=== PATIENT | female | born 1930 | race Caucasian/White ===

== ENCOUNTER 2017-02-02 17:24 | Emergency (ER) | payer OTHER ==
[~2017-02-02] VITALS: Ht 152.4 cm; Wt 76.0 kg
[~2017-02-02 17:24] MED LIST: GABA100C4 PO; HYDR-3533 PO; LISI40TA PO; LOVA10TA PO; METO25TA6 PO; MOTR200T4 PO; ULTR50TA5 PO; VITA400C97 PO; VITATAB11 PO; VITD400 PO; [UNRECOGNIZED DRUG - CODE] PO
[2017-02-02 17:28] VITALS: BP 156/70; PULSE 68; RESP 17; TEMP 98.3; O2SAT 96
[2017-02-02] MEDS ORDERED: AMLOPOW (17:49)
[2017-02-02] MEDS ORDERED: PROP10TA6 PO (17:49)
[2017-02-02] MEDS ORDERED: LABE100T2 PO (17:49)
[2017-02-02] MEDS ORDERED: HYDR12.56 PO (17:49)
[2017-02-02] MEDS ORDERED: ULTR50TA5 PO (17:54)
--- NOTE | 2017-02-02 17:54 | PD ---
HPI Chief Complaint: Back/ Neck Pain or Injury Time Seen by Provider: 17:40 Travel History International Travel<30 days: No Contact w/Intl Traveler<30days: No Traveled to known affect area: No History of Present Illness HPI 86-year-old female with history of chronic low back pain and sciatica presents emergency department for evaluation of increased pain of the last 1 day. She denies trauma or fall. Patient reports the pain is similar to her sciatica. It is unrelieved by Naprosyn. Her physical exam is reassuring. She denies incontinence, fever, chills, numbness/tingling/weakness of the extremities, saddle anesthesia. PFSH Past Medical History Hx Anticoagulant Therapy: No Arthritis: Yes Asthma: Yes Autoimmune Disease: No Blood Disorders: No Heart Rhythm Problems: Yes Cancer: Yes (COLON, RESECTION IN 1965) Cardiovascular Problems: Yes (htn on meds) High Cholesterol: Yes Chest Pain: Yes COPD: Yes Diminished Hearing: No Endocrine: No Genitourinary: No Hiatal Hernia: Yes Hypertension: Yes Psychiatric: No Reproductive: No Respiratory: Yes (copd) Immunizations Current: Yes Menopausal: Yes Past Surgical History Abdominal Surgery: Yes (stomach bypass, COLON RESECTION.) Appendectomy: Yes (at age 5) Ear Surgery: No Eye Surgery: Yes (CATARACTS REMOVAL) Gynecologic Surgery: Yes (HYSTERECTOMY 1964) Hysterectomy: Yes Oral Surgery: No Tonsillectomy: Yes (As child) Other Surgery: Yes (right great toe removed) Social History Alcohol Use: No Tobacco Use: No Substance Use: No Allergies-Medications (Allergen,Severity, Reaction): Coded Allergies: Lipitor (Verified Allergy, Severe, RASH, 02/02/17) . Norvasc (Verified Allergy, Severe, RASH, 02/02/17) . Penicillin (Verified Allergy, Severe, RASH, 02/02/17) . Adhesives (Verified Adverse Reaction, Severe, Rash, 02/02/17) . Prednisone (Verified Adverse Reaction, Intermediate, GI, AND SLEEPINESS, ) . Uncoded Allergies: RUBY (Allergy, Intermediate, 02/02/17) . Reported Meds & Prescriptions Reported Meds & Active Scripts Active Ultram (Tramadol HCl) 50 Mg Tab 50 Mg PO Q6H PRN Reported [Amlodipine Besylate] Unknown Dose Labetalol (Labetalol HCl) 100 Mg Tab 100 Mg PO BID Propranolol (Propranolol HCl) 10 Mg Tab 10 Mg PO Q12HR Hydrochlorothiazide 12.5 Mg Tab 12.5 Mg PO DAILY Vitamin B Complex (B-Complex Vitamins) 1 Tab 1 Tab PO DAILY Vitamin D3 (Cholecalciferol) 400 Unit Tab 400 Units PO DAILY Lisinopril 40 Mg Tab 40 Mg PO DAILY Gabapentin 100 Mg Cap 300 Mg PO DAILY Lovastatin 10 Mg Tab 40 Mg PO DAILY Review of Systems Except as stated in HPI: all other systems reviewed are Neg Physical Exam Narrative GENERAL: [-] SKIN: Focused skin assessment warm/dry. HEAD: Atraumatic. Normocephalic. EYES: Pupils equal and round. No scleral icterus. No injection or drainage. ENT: No nasal bleeding or discharge. Mucous membranes pink and moist. NECK: Trachea midline. No JVD. CARDIOVASCULAR: Regular rate and rhythm. No murmur appreciated. RESPIRATORY: No accessory muscle use. Clear to auscultation. Breath sounds equal bilaterally. GASTROINTESTINAL: Abdomen soft, non-tender, nondistended. Hepatic and splenic margins not palpable. MUSCULOSKELETAL: No obvious deformities. No clubbing. No cyanosis. No edema. BACK: No CVA tenderness. No rash. No point tenderness on palpation of the spine. NEUROLOGICAL: Awake and alert. No obvious cranial nerve deficits. Motor grossly within normal limits. Normal speech. 5 out of 5 strength in extremities. Dorsiflex and plantarflex intact. PSYCHIATRIC: Appropriate mood and affect; insight and judgment normal. Data Data Last Documented VS Vital Signs Date Time Temp Pulse Resp B/P Pulse Ox O2 Delivery O2 Flow Rate FiO2 02/02/17 17:28 98.3 68 17 156/70 96 Orders Ketorolac Inj (Toradol Inj) (02/02/17 18:00) [facility] Medical Decision Making Medical Screen Exam Complete: Yes Emergency Medical Condition: Yes Differential Diagnosis Sciatica, lumbar strain, acute on chronic low back pain Narrative Course 86-year-old female with history of chronic low back pain and sciatica presents emergency department for evaluation of increased pain of the last 1 day. She denies trauma or fall. Patient reports the pain is similar to her sciatica. It is unrelieved by Naprosyn. Her physical exam is reassuring. She denies incontinence, fever, chills, numbness/tingling/weakness of the extremities, saddle anesthesia. She reports she has taken Ultram in the past for the pain. Patient will be given a prescription for this and instructed to continue with her physical therapy. Diagnosis Primary Impression: Sciatica Qualified Code: M54.31 - Sciatica of right side Referrals: Primary Care Physician Additional Instructions: Take the pain medication as prescribed and as needed for pain. Follow-up with her primary care doctor for reevaluation. Return to the emergency department if he developed new or worsening symptoms Scripts Tramadol (Ultram)50 Mg Tab50 Mg PO Q6H PRN (PAIN) #15 TAB Ref 0 Prov:Ellie Torres 02/02/17 Disposition: 01 DISCHARGE HOME Condition: Stable Ellie Torres Feb 02, 2017 17:54
[2017-02-02] MEDS ORDERED: KETOROLAC TROMETHAMINE 60 MG/2 ML (IM) VIAL IM ONE (18:00)
== END 2017-02-02 18:18 | disposition home or self-care (01) ==
LOC: PHEFT 17:24
DX: M54.41 Lumbago with sciatica, right side (principal)
CPT/HCPCS: 96372; 99284; J1885

== ENCOUNTER 2017-12-20 15:42 | Emergency (ER) | payer OTHER ==
[~2017-12-20] VITALS: Ht 149.9 cm; Wt 72.0 kg
[~2017-12-20 15:42] MED LIST changes: +AMLOPOW; -HYDR-3533 PO; +HYDR12.56 PO; +LABE100T2 PO; -METO25TA6 PO; -MOTR200T4 PO; +PROP10TA6 PO; +TRAM50 PO; -ULTR50TA5 PO; -VITA400C97 PO; -[UNRECOGNIZED DRUG - CODE] PO
[2017-12-20 15:57] VITALS: BP 196/79; PULSE 64; RESP 17; TEMP 97.9; O2SAT 98
[2017-12-20] MEDS ORDERED: predniSONE 20 MG TAB PO ONE (16:45)
[2017-12-20] MEDS ORDERED: KETOROLAC TROMETHAMINE 60 MG/2 ML (IM) VIAL IM ONE (16:45)
--- NOTE | 2017-12-20 17:01 | PD ---
HPI Chief Complaint: Back/ Neck Pain or Injury Time Seen by Provider: 16:31 Travel History International Travel<30 days: No Contact w/Intl Traveler<30days: No Traveled to known affect area: No History of Present Illness HPI 87-year-old female presents emergency department with recurrent low back pain and sciatica. Patient states she is getting up into her bed when she felt sudden onset pain with radicular pain into the right leg. She denies numbness, tingling, or weakness. This is similar to previous symptoms in the past. Pain is currently 8 out of 10. Patient is allergic to penicillin, atorvastatin, amlodipine, adhesive, and LIMES. PFSH Past Medical History Hx Anticoagulant Therapy: No Arthritis: Yes Asthma: Yes Autoimmune Disease: No Blood Disorders: No Heart Rhythm Problems: Yes Cancer: Yes (COLON, RESECTION IN 1964) Cardiovascular Problems: Yes (htn on meds) High Cholesterol: Yes Chest Pain: Yes COPD: Yes Diminished Hearing: No Endocrine: No Genitourinary: No Hiatal Hernia: Yes Hypertension: Yes Psychiatric: No Reproductive: No Respiratory: Yes (copd) Immunizations Current: Yes Tetanus Vaccination: > 5 Years Influenza Vaccination: Yes ?: Not Menopausal: Yes Past Surgical History Abdominal Surgery: Yes (stomach bypass, COLON RESECTION.) Appendectomy: Yes (at age 5) Ear Surgery: No Eye Surgery: Yes (CATARACTS REMOVAL) Gynecologic Surgery: Yes (HYSTERECTOMY 1964) Hysterectomy: Yes Oral Surgery: No Tonsillectomy: Yes (As child) Other Surgery: Yes (right great toe removed) Social History Alcohol Use: Yes (occasionally ) Tobacco Use: No Substance Use: No Allergies-Medications (Allergen,Severity, Reaction): Coded Allergies: amlodipine (Unverified Allergy, Severe, RASH, 12/20/17) . atorvastatin (Unverified Allergy, Severe, RASH, 12/20/17) . penicillin G (Unverified Allergy, Severe, RASH, 12/20/17) . adhesive (Unverified Adverse Reaction, Severe, Rash, 12/20/17) . prednisone (Unverified Adverse Reaction, Intermediate, GI, AND SLEEPINESS , 12/20/17) . Uncoded Allergies: [place]OSHONE (Allergy, Intermediate, 02/02/17) . Reported Meds & Prescriptions Reported Meds & Active Scripts Active Ultram (Tramadol HCl) 50 Mg Tab 50 Mg PO Q6H PRN Reported [Amlodipine Besylate] Unknown Dose Labetalol (Labetalol HCl) 100 Mg Tab 100 Mg PO BID Propranolol (Propranolol HCl) 10 Mg Tab 10 Mg PO Q12HR Hydrochlorothiazide 12.5 Mg Tab 12.5 Mg PO DAILY Vitamin B Complex (B-Complex Vitamins) 1 Tab 1 Tab PO DAILY Vitamin D3 (Cholecalciferol) 400 Unit Tab 400 Units PO DAILY Lisinopril 40 Mg Tab 40 Mg PO DAILY Gabapentin 100 Mg Cap 300 Mg PO DAILY Lovastatin 10 Mg Tab 40 Mg PO DAILY Review of Systems Except as stated in HPI: all other systems reviewed are Neg General / Constitutional: No: Fever Eyes: No: Visual changes HENT: No: Headaches Cardiovascular: No: Chest Pain or Discomfort Respiratory: No: Shortness of Breath Gastrointestinal: No: Abdominal Pain Genitourinary: No: Dysuria Musculoskeletal: Positive: Arthralgias, Limited ROM, Pain Skin: No Rash Neurologic: No: Weakness Psychiatric: No: Depression Endocrine: No: Polydipsia Hematologic/Lymphatic: No: Easy Bruising Physical Exam Narrative GENERAL: Patient appears in mild distress. SKIN: Warm and dry. Normal color. Normal turgor. No rash HEAD: Atraumatic. Normocephalic. EYES: Pupils equal and round. No scleral icterus. No injection or drainage. ENT: No nasal bleeding or discharge. Mucous membranes pink and moist. Pharynx is clear. Airways patent NECK: Trachea midline. Supple and nontender. CARDIOVASCULAR: Regular rate and rhythm. RESPIRATORY: No accessory muscle use. Clear to auscultation. Breath sounds equal bilaterally. GASTROINTESTINAL: Abdomen soft, non-tender, nondistended. Hepatic and splenic margins not palpable. MUSCULOSKELETAL: Extremities without clubbing, cyanosis, or edema. No obvious deformities. Patient has pain in the right sciatic notch with positive straight leg raise pain on the right at 40. No weakness is appreciated. Deep tendon reflexes are equal bilaterally. NEUROLOGICAL: Awake and alert. No obvious cranial nerve deficits. Motor grossly within normal limits. Five out of 5 muscle strength in the arms and legs. Normal speech. PSYCHIATRIC: Appropriate mood and affect; insight and judgment normal. Data Data Last Documented VS Vital Signs Date Time Temp Pulse Resp B/P (MAP) Pulse Ox O2 Delivery O2 Flow Rate FiO2 12/20/17 15:57 97.9 64 17 196/79 (118) 98 Orders Orders Ketorolac Inj (Toradol Inj) (12/20/17 16:45) Prednisone (Deltasone) (12/20/17 16:45) Abscess Culture And Gram Stain (12/20/17 16:39) [facility] Medical Decision Making Medical Screen Exam Complete: Yes Emergency Medical Condition: Yes Differential Diagnosis Low back pain. Sciatica. Radiculopathy. Narrative Course Patient is medically stable time exam. Radiographic imaging is not felt warranted based on the patient's history and physical. Patient is given prednisone 20 mg daily for the next 5 days. Patient can take her tramadol that she has at home for pain as needed. Patient should follow-up if symptoms do not improve or worsen in the next several days. Diagnosis Primary Impression: Right-sided low back pain with sciatica Qualified Codes: M54.41 - Lumbago with sciatica, right side Patient Instructions: General Instructions, Lumbar Radiculopathy (ED) Additional Instructions: Radiographic imaging is not felt warranted based on the patient's history and physical. Patient is given prednisone 20 mg daily for the next 5 days. Patient can take her tramadol that she has at home for pain as needed. Patient should follow-up if symptoms do not improve or worsen in the next several days. Scripts Prednisone (Prednisone) 20 Mg Tab 20 MG PO DAILY for 5 Days, #5 TAB 0 Refills Prov: Yifan Wylie MD 12/20/17 Disposition: 01 DISCHARGE HOME Condition: Stable Sathish Morales Dec 20, 2017 17:01
[2017-12-20] MEDS ORDERED: PRED20 PO (17:22)
== END 2017-12-20 18:02 | disposition home or self-care (01) ==
LOC: NEPD 15:42
DX: M54.41 Lumbago with sciatica, right side (principal); E78.00 Pure hypercholesterolemia, unspecified; I10 Essential (primary) hypertension
CPT/HCPCS: 96372; 99283; J1885; J7512